=== PATIENT | female | born 1960 | race Caucasian/White ===

== ENCOUNTER 2020-12-19 13:24 | Inpatient (IN) ==
[2020-12-19] MEDS ORDERED: ACETAMINOPHEN 325 MG TABLET PO PRN (16:04)
[2020-12-19] MEDS ORDERED: ONDANSETRON 4 MG/2 ML VIAL IV PRN (16:04)
[2020-12-19 16:24] LABS: Basophils % 0.5 % (0.0-0.8); Eosinophils # 0.2 10*3/uL (0.0-0.87); Hemoglobin 12.5 GM/DL (12.0-16.0); Immature Granulocytes % 0.2 %; Immature Granulocytes Absolute 0.02 #; Lymphocytes # 1.6 10*3/uL (1.4-4.0); Lymphocytes % 18.1 % (21.3-54.2); Mean Corpuscular HGB Conc 32.9 GM/DL (32-36); Mean Platelet Volume 9.1 FL (9.6-12.0); Monocytes % 6.2 % (1.7-12.7); Platelet Count 326 T/CUMM (130-400); Red Blood Count 3.96 MC/CUMM (3.8-5.5); Red Cell Distribution Width 11.9 % (9.3-17.3); White Blood Count 8.8 T/CUMM (4-12)
[2020-12-19] MEDS ORDERED: VANCOMYCIN INJ 1,000 MG in SODIUM CHLORIDE 0.9% 250 ML IV SCH (16:30)
[2020-12-19 16:41] LABS: Albumin 3.5 G/DL (3.4-5.0); Bilirubin,Total 0.7 MG/DL (0.2-1.0); Calcium 8.9 MG/DL (8.5-10.1); Osmolality,Calculated 278.4 MOS/KG (273-304); Potassium 4.1 MMOL/L (3.5-5.1); Total Protein 7.1 G/DL (6.4-8.2)
[2020-12-19] MEDS: DEXTROSE 5% NACL 0.45% 1,000 ML IV SCH (18:05)
[2020-12-19] MEDS: VANCOMYCIN INJ 1,000 MG in SODIUM CHLORIDE 0.9% 250 ML IV SCH (18:05)
[2020-12-19] MEDS: cefTRIAXone 1,000 MG in SODIUM CHLORIDE 0.9% 100 ML IV SCH (18:05)
[2020-12-20] MEDS: DEXTROSE 5% NACL 0.45% 1,000 ML IV SCH ×2 (03:16→12:31)
[2020-12-20] MEDS: VANCOMYCIN INJ 1,000 MG in SODIUM CHLORIDE 0.9% 250 ML IV SCH ×2 (06:06→14:38)
[2020-12-20] MEDS ORDERED: PANTOPRAZOLE 40 MG TABLET PO SCH (09:00)
[2020-12-20] MEDS ORDERED: LEVOTHYROXINE 100 MCG TABLET PO ONE (10:00)
[2020-12-20] MEDS: cefTRIAXone 1,000 MG in SODIUM CHLORIDE 0.9% 100 ML IV SCH (10:50)
[2020-12-20 15:28] VITALS: BP 120/65
[2020-12-21] MEDS ORDERED: LEVOTHYROXINE 100 MCG TABLET PO SCH (06:30)
== END 2020-12-20 16:15 | disposition home or self-care (01) | DRG 863 ==
LOC: N.ED 13:24 → N.EDINP 16:04 → N.3E 16:42
PROVIDERS: ADMIT Specialist; ATTEND Specialist